=== PATIENT | male | born 1990 ===

== ENCOUNTER 2018-09-20 01:17 | Emergency (ER) | payer SELFPAY ==
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
== END 2018-09-20 01:30 ==
LOC: VM.ED 01:17
DX: F10.10 Alcohol abuse, uncomplicated (principal)
CPT/HCPCS: 99282